=== PATIENT | female | born 1945 | race Two or more races ===

== ENCOUNTER 2017-03-24 09:57 | Day surgery (SDC) | payer MEDICARE, MEDICAID ==
[2017-03-23 16:56] LABS: BASOPHILS # (AUTO) 0.1 X10'3 (0-0.2); BASOPHILS % (AUTO) 0.9 % (0-1); EOSINOPHILS # (AUTO) 0.2 X10'3 (0-0.9); EOSINOPHILS % (AUTO) 1.8 % (0-6); HEMATOCRIT 30.1 % (35.0-45.0); HEMOGLOBIN 9.9 g/dl (12.0-16.0); LYMPHOCYTES # (AUTO) 1.7 X10'3 (1.1-4.8); LYMPHOCYTES % (AUTO) 19.8 % (21-51); MEAN CORPUSCULAR HEMOGLOBIN 26.5 PG (27.0-31.0); MEAN CORPUSCULAR HGB CONC 32.9 % (33.0-36.5); MEAN CORPUSCULAR VOLUME 80.6 FL (78-98); MEAN PLATELET VOLUME 8.7 FL (7.4-10.4); MONOCYTES # (AUTO) 0.4 X10'3 (0-0.9); MONOCYTES % (AUTO) 5.2 % (2-12); NEUTROPHILS # (AUTO) 6.2 X10'3 (1.8-7.7); NEUTROPHILS % (AUTO) 72.3 % (42-75); PLATELET COUNT 297 X10'3 (140-440); RED BLOOD COUNT 3.73 X10'6 (4.20-5.60); RED CELL DISTRIBUTION WIDTH 15.3 % (11.5-14.5); WHITE BLOOD COUNT 8.6 X10'3 (4.5-11.0)
[2017-03-23 17:07] LABS: ALBUMIN 3.5 G/DL (3.4-5.0); ANION GAP 9 (8-16); BLOOD UREA NITROGEN 45 MG/DL (7-18); CALCIUM 8.5 MG/DL (8.5-10.1); CHLORIDE 107 MMOL/L (99-107); GLUCOSE 154 MG/DL (70-104); SODIUM 139 MMOL/L (135-145); TOTAL CARBON DIOXIDE 23.1 MMOL/L (24-32); eGFR 15 ML/MIN
[2017-03-23 17:08] LABS: PARTIAL THROMBOPLASTIN TIME 24 SECONDS (22-32); PROTHROMBIN TIME 10.7 SECONDS (9.0-12.0)
[2017-03-24] VITALS (11 sets, daily range): BP systolic 121–156; BP diastolic 55–76
[~2017-03-24] VITALS: Ht 157.5 cm; Wt 70.0 kg
[~2017-03-24 09:57] MED LIST: CAR30T PO; ESCI20TA29 PO; FENO48TA4 PO; INSU100V36 SQ; LANTUS SQ; LEVO100T46 PO; LISI-222 PO; LORA0.5T PO; OMEP-84 PO; OXYB10TA16 PO; POLY1POW3 MC
[2017-03-24] MEDS ORDERED: diphenhydrAMINE 25mg capsule PO PRN (10:25)
[2017-03-24] MEDS ORDERED: normal saline 1000ml 1,000 ML IV SCH (10:25)
[2017-03-24] MEDS ORDERED: LORazepam 0.5 MG tablet PO PRN (10:25)
[2017-03-24] MEDS ORDERED: CITA20TA11 PO (11:39)
[2017-03-24] MEDS ORDERED: VALS80TA2 PO (11:48)
[2017-03-24] MEDS ORDERED: NITR0.4T51 SL (11:49)
[2017-03-24] MEDS ORDERED: FLUT16SP20 BOTHNARES (11:51)
[2017-03-24] MEDS ORDERED: iohexol 350MG/ML 100ml bottle IV ONE (12:06)
[2017-03-24] MEDS ORDERED: midazolam 2 mg/2 ml injection ONE (12:06)
[2017-03-24] MEDS ORDERED: heparin 1,000unit/ml 10ml vial 10 ML ONE (12:06)
[2017-03-24] MEDS ORDERED: fentaNYL/PF 50MCG/1 ML 2ML syringe ONE (12:06)
[2017-03-24] MEDS ORDERED: iohexol 350 MG/ML 50ML vial IV ONE (12:06)
[2017-03-24] MEDS ORDERED: nitroGLYCERIN-Tridil 50MG/D5W 250 ML IV ONE (12:06)
[2017-03-24] MEDS ORDERED: LIDOcaine 1%/PF (10mg/ml) 5ml vial ONE (12:06)
[2017-03-24] MEDS ORDERED: sod bicarbonate 150mEq in D5W 1,150 ML IV ONE ×2 (13:05→14:20)
[2017-03-24 13:16] LABS: ISTAT HGB ART 9.5 g/dl (12.0-16.0); ISTAT Hct ART 28 %PCV (35-48); ISTAT O2 SATURATION ARTERIAL 99 % (95-98); ISTAT SOURCE ART
[2017-03-24 13:16] LABS: ISTAT Hct MIX 30 %PCV (35-48); ISTAT O2 SATURATION MIX VENOUS 71 % (60-80); ISTAT SOURCE MIX
[2017-03-24] MEDS ORDERED: HYDROcodone/acetaminophen 10/325mg tab PO ONE (17:25)
[2017-03-24] MEDS ORDERED: acetylcysteine 200 MG/ml 4ml vial PO SCH (20:00)
== END 2017-03-24 19:20 | disposition home or self-care (01) ==
LOC: SSTAY O 09:57
PROVIDERS: ATTEND Internal Medicine Cardiovascular Disease
DX: I25.10 Atherosclerotic heart disease of native coronary artery without angina pectoris (principal); E78.4 Other hyperlipidemia; J45.998 Other asthma; M06.80 Other specified rheumatoid arthritis, unspecified site; M19.90 Unspecified osteoarthritis, unspecified site; I12.9 Hypertensive chronic kidney disease with stage 1 through stage 4 chronic kidney disease, or unspecified chronic kidney disease; N18.9 Chronic kidney disease, unspecified; E11.22 Type 2 diabetes mellitus with diabetic chronic kidney disease; E03.8 Other specified hypothyroidism
CPT/HCPCS: 36415; 80048; 82803; 82948; 85014; 85025; 85610; 85730; 93005; 93460; 99152; 99153; A6257; C1760; C1769; J1644; J2001; J2250; J3010; J3490; J7030; Q0163; Q9967; A4620

== ENCOUNTER 2023-12-29 23:12 | Inpatient (IN) | payer MEDICARE, MEDICAID ==
[~2023-12-29] VITALS: Ht 154.9 cm; Wt 67.1 kg
[~2023-12-29 23:12] MED LIST changes: +ASCO-336 PO; +CALC667T6 PO; -CAR30T PO; +CHOL20004 PO; +DILT30TA2 PO; -ESCI20TA29 PO; -FENO48TA4 PO; -LEVO100T46 PO; +LEVO75TA7 PO; -LISI-222 PO; -LORA0.5T PO; +LOSA50TA64 PO; +NITR0.4T51 SL; -OXYB10TA16 PO; -POLY1POW3 MC; +TRAM50TA2 PO
[2023-12-30] VITALS (26 sets, daily range): BP systolic 110–176; BP diastolic 54–96; PULSE 73–112; RESP 12–22; TEMP 97.4–98.5; O2SAT 95–100
[2023-12-30] MEDS ORDERED: SEVE800T8 PO (01:03)
[2023-12-30] MEDS ORDERED: MECL-231 PO (01:03)
[2023-12-30] MEDS ORDERED: METO5TAB98 PO (01:03)
[2023-12-30] MEDS ORDERED: ONDA-245 PO (01:03)
[2023-12-30] MEDS ORDERED: CLON0.1T2 PO (01:03)
[2023-12-30] MEDS ORDERED: ROSU10TA72 PO (01:03)
[2023-12-30] MEDS ORDERED: DILT240C94 PO (01:05)
[2023-12-30] MEDS ORDERED: APIX5TAB3 PO (01:08)
[2023-12-30] MEDS ORDERED: potassium Cl 20 mEq SR tablet PO PRN ×2 (02:10)
[2023-12-30] MEDS ORDERED: magnesium Cl slow-release 64mg tablet PO PRN (02:10)
[2023-12-30] MEDS ORDERED: potassium Cl 40MEQ/1/2NS 520ml 520 ML IV PRN (02:10)
[2023-12-30] MEDS ORDERED: ondansetron/PF 4mg/2ml inj IV PRN (02:10)
[2023-12-30] MEDS ORDERED: PERFLUTREN PROTEIN-A MICROSPHR (Optison) 0.22 MG/ML 3ML VIAL IV PRN (02:10)
[2023-12-30] MEDS ORDERED: magnesium sulf-water 4G/100mL 100 ML IV PRN (02:10)
[2023-12-30] MEDS ORDERED: magnesium hydroxide 30ml (MOM) UD suspension PO PRN (02:10)
[2023-12-30] MEDS ORDERED: magnesium sulf-water 2g/50mL 50 ML IV PRN (02:10)
[2023-12-30] MEDS ORDERED: mag hydrox/Alum hydrox/simeth 30ml oral suspension PO PRN (02:10)
[2023-12-30 02:38] LABS: PROTHROMBIN TIME 10.9 SECONDS (9.0-12.0)
[2023-12-30 02:40] LABS: BILIRUBIN,URINE NEGATIVE (Neg); CLARITY,URINE CLEAR (Clear); COLOR,URINE STRAW (Yellow); GLUCOSE, URINE 100 mg/dl (Neg); KETONES,URINE NEGATIVE (Neg); LEUKOCYTE ESTERASE ,URINE SMALL (Neg); NITRITES, URINE NEGATIVE (Neg); OCCULT BLOOD,URINE TRACE-INTACT (Neg); PH,URINE 8.5 (4.8-8.0); PROTEIN,URINE 100 mg/dl (Neg); UROBILINOGEN,URINE 0.2 E.U/dL (0.2-1.0)
[2023-12-30] MEDS ORDERED: glucagon, human recombinant 1mg kit SUBCUT PRN (02:45)
[2023-12-30] MEDS ORDERED: DEXTROSE 15 GM of carb/4 tabs (each vial/BOTTLE has 4 tablets) PO PRN ×2 (02:45)
[2023-12-30] MEDS ORDERED: ipratropium/albuterol 3ml nebule NEB PRN (02:45)
[2023-12-30] MEDS ORDERED: dextrose 50%-water 50ml dispensing syringe IV PRN ×2 (02:45)
[2023-12-30 02:48] LABS: ALANINE AMINOTRANSFERASE 27 U/L (12-78); ALBUMIN 3.1 G/DL (3.4-5.0); ALBUMIN/GLOBULIN RATIO 0.7 (1.1-1.5); ALKALINE PHOSPHATASE 199 IU/L (46-116); ANION GAP 9 (8-16); ASPARTATE AMINO TRANSFERASE 18 U/L (10-37); BILIRUBIN,TOTAL 0.5 MG/DL (0.1-1.0); BLOOD UREA NITROGEN 47 MG/DL (7-18); BUN/CREATININE RATIO 9.5 (10.0-20.0); CALCIUM 8.5 MG/DL (8.5-10.1); CHLORIDE 93 MMOL/L (99-107); CREATININE 4.95 MG/DL (0.40-0.90); GLUCOSE 122 MG/DL (70-104); POTASSIUM 4.3 MMOL/L (3.5-5.1); SODIUM 132 MMOL/L (135-145); TOTAL CARBON DIOXIDE 29.9 MMOL/L (24-32); TOTAL PROTEIN 7.4 G/DL (6.4-8.2); eCRCL 7 ML/MIN; eGFR 8 ML/MIN
[2023-12-30 02:49] LABS: UA COLLECTION TYPE CLN CATCH MIDSTREAM
[2023-12-30 02:49] LABS: BASOPHILS % (AUTO) 0.3 % (0-1); EOSINOPHILS # (AUTO) 0.1 X10'3 (0-0.9); HEMATOCRIT 30.8 % (35.0-45.0); HEMOGLOBIN 10.3 g/dl (12.0-16.0); LYMPHOCYTES # (AUTO) 1.2 X10'3 (1.1-4.8); MEAN CORPUSCULAR HEMOGLOBIN 30.4 PG (27.0-31.0); MEAN CORPUSCULAR HGB CONC 33.5 g/dL (33.0-36.5); MEAN CORPUSCULAR VOLUME 90.7 FL (78-98); MEAN PLATELET VOLUME 8.7 FL (7.4-10.4); MONOCYTES # (AUTO) 0.6 X10'3 (0-0.9); MONOCYTES % (AUTO) 6.7 % (2-12); NEUTROPHILS # (AUTO) 7.2 X10'3 (1.8-7.7); PLATELET COUNT 200 X10'3 (140-440); RED CELL DISTRIBUTION WIDTH 16.2 % (11.5-14.5); WHITE BLOOD COUNT 9.2 X10'3 (4.5-11.0)
[2023-12-30 02:50] LABS: SQUAMOUS EPITHELIAL CELL,UR FEW /LPF (FEW); TRANSITIONAL EPI CELLS,URINE FEW /HPF
[2023-12-30] MEDS ORDERED: nitroGLYCERIN 0.4mg SUBLingual tab SL PRN ×2 (02:50→11:45)
[2023-12-30 02:51] LABS: BACTERIA,URINE FEW /HPF (Neg)
[2023-12-30 03:07] LABS: HEMOGLOBIN A1C 5.5 % (4.5-6.2)
[2023-12-30 03:08] LABS: THYROID STIMULATING HORMONE 1.85 ulU/ml (0.34-4.50)
[2023-12-30] MEDS ORDERED: INSU100V9 SQ (06:11)
[2023-12-30] MEDS: EPOETIN ALFA-EPBX 20,000 UNIT/ML 1 ML MDV IV ONE ×2 (06:45→19:34)
[2023-12-30] MEDS ORDERED: albumin (human) 25% 100ml IV 100 ML IV PRN (06:45)
[2023-12-30] MEDS: heparin 1,000 units/ml 10ml inj HE ONE ×4 (06:50→19:36)
[2023-12-30] MEDS: INSULIN LISPRO 100 UNIT/ML INSULN.PEN MULTI-DOSE SQ SCH (07:00)
[2023-12-30] MEDS: pantoprazole 40mg Tablet.DR PO SCH (07:38)
[2023-12-30] MEDS: K and/or MAG REPLACEMENT MC SCH (07:39)
[2023-12-30] MEDS: docusate sod 100mg capsule PO SCH (08:00)
[2023-12-30] MEDS ORDERED: heparin, porcine 5000 units/ml vial SQ SCH (08:00)
[2023-12-30 08:06] LABS: MAGNESIUM 2.6 MG/DL (1.5-2.4); POTASSIUM 4.6 MMOL/L (3.5-5.1)
[2023-12-30] MEDS: CefTRIAXone/D5W-Rocephin 1gm 50 ML IV SCH (08:51)
[2023-12-30] MEDS: levoTHYROXINE 75mcg tablet PO SCH (08:51)
[2023-12-30] MEDS: sevelamer carbonate 800mg tablet PO SCH (08:52)
[2023-12-30] MEDS: apixaban 5mg tablet PO SCH (08:52)
[2023-12-30] MEDS: meclizine 12.5mg tablet PO SCH (08:52)
[2023-12-30] MEDS: diltiazem CD 120mg capsule (once-daily) PO SCH (08:52)
[2023-12-30] MEDS: ondansetron 4mg rapidly disintigrating tab PO SCH (08:52)
[2023-12-30] MEDS: insulin glargine (Lantus) pen - multi-dose SQ SCH (09:07)
[2023-12-30 10:01] LABS: BASOPHILS % (AUTO) 0.4 % (0-1); EOSINOPHILS # (AUTO) 0.1 X10'3 (0-0.9); EOSINOPHILS % (AUTO) 1.2 % (0-6); HEMATOCRIT 29.8 % (35.0-45.0); HEMOGLOBIN 9.8 g/dl (12.0-16.0); LYMPHOCYTES # (AUTO) 1.1 X10'3 (1.1-4.8); LYMPHOCYTES % (AUTO) 16.3 % (21-51); MEAN CORPUSCULAR HEMOGLOBIN 30.1 PG (27.0-31.0); MEAN CORPUSCULAR VOLUME 91.1 FL (78-98); MEAN PLATELET VOLUME 8.5 FL (7.4-10.4); MONOCYTES # (AUTO) 0.6 X10'3 (0-0.9); MONOCYTES % (AUTO) 8.4 % (2-12); NEUTROPHILS % (AUTO) 73.7 % (42-75); PLATELET COUNT 181 X10'3 (140-440); RED BLOOD COUNT 3.27 X10'6 (4.20-5.60); RED CELL DISTRIBUTION WIDTH 15.8 % (11.5-14.5); WHITE BLOOD COUNT 6.8 X10'3 (4.5-11.0)
[2023-12-30 10:19] LABS: ALANINE AMINOTRANSFERASE 24 U/L (12-78); ALBUMIN 3.2 G/DL (3.4-5.0); ALBUMIN/GLOBULIN RATIO 0.8 (1.1-1.5); ALKALINE PHOSPHATASE 191 IU/L (46-116); ASPARTATE AMINO TRANSFERASE 24 U/L (10-37); BILIRUBIN,TOTAL 0.5 MG/DL (0.1-1.0); BLOOD UREA NITROGEN 46 MG/DL (7-18); BUN/CREATININE RATIO 9.4 (10.0-20.0); CALCIUM 8.3 MG/DL (8.5-10.1); CREATININE 4.91 MG/DL (0.40-0.90); GLUCOSE 117 MG/DL (70-104); TOTAL CARBON DIOXIDE 28.1 MMOL/L (24-32); TOTAL PROTEIN 7.3 G/DL (6.4-8.2); eCRCL 7 ML/MIN; eGFR 9 ML/MIN
[2023-12-30 10:25] LABS: POTASSIUM 4.4 MMOL/L (3.5-5.1); SODIUM 130 MMOL/L (135-145)
[2023-12-30 10:26] LABS: ANION GAP 11 (8-16); CHLORIDE 91 MMOL/L (99-107)
[2023-12-30] MEDS ORDERED: metoprolol tartrate 1mg/ml inj IV PRN (11:45)
[2023-12-30] MEDS: acetaminophen 325mg tablet PO PRN (13:43)
[2023-12-30] MEDS: regadenoson 0.4mg/5ml syringe IV PRN (15:37)
[2023-12-30] MEDS: aminophylline 250mg/10ml inj. IV PRN (16:06)
[2023-12-30] MEDS ORDERED: metoclopramide 10mg tablet PO PRN (20:30)
[2023-12-30] MEDS: cloNIDine 0.1 mg tablet PO SCH (22:32)
[2023-12-30] MEDS: ROSUVASTATIN CALCIUM 5 MG TABLET PO SCH (22:51)
[2023-12-31 02:00] VITALS: BP 105/47; PULSE 85; RESP 14; TEMP 98.3; O2SAT 96
[2023-12-31 06:00] VITALS: BP 101/47; PULSE 67; RESP 13; TEMP 98.7; O2SAT 99
[2023-12-31 08:00] VITALS: RESP 13; O2SAT 99
[2023-12-31 08:16] LABS: BASOPHILS # (AUTO) 0.1 X10'3 (0-0.2); BASOPHILS % (AUTO) 1.1 % (0-1); EOSINOPHILS # (AUTO) 0.1 X10'3 (0-0.9); EOSINOPHILS % (AUTO) 1.3 % (0-6); HEMATOCRIT 30.5 % (35.0-45.0); HEMOGLOBIN 10.1 g/dl (12.0-16.0); LYMPHOCYTES # (AUTO) 1.3 X10'3 (1.1-4.8); LYMPHOCYTES % (AUTO) 21.6 % (21-51); MEAN CORPUSCULAR HEMOGLOBIN 30.7 PG (27.0-31.0); MEAN CORPUSCULAR HGB CONC 33.2 g/dL (33.0-36.5); MEAN CORPUSCULAR VOLUME 92.5 FL (78-98); MEAN PLATELET VOLUME 7.8 FL (7.4-10.4); MONOCYTES # (AUTO) 0.7 X10'3 (0-0.9); MONOCYTES % (AUTO) 10.9 % (2-12); NEUTROPHILS # (AUTO) 4.1 X10'3 (1.8-7.7); NEUTROPHILS % (AUTO) 65.1 % (42-75); PLATELET COUNT 197 X10'3 (140-440); RED CELL DISTRIBUTION WIDTH 16.5 % (11.5-14.5); WHITE BLOOD COUNT 6.2 X10'3 (4.5-11.0)
[2023-12-31 08:21] LABS: ANION GAP 8 (8-16); BLOOD UREA NITROGEN 30 MG/DL (7-18); BUN/CREATININE RATIO 7.6 (10.0-20.0); CALCIUM 8.5 MG/DL (8.5-10.1); CHLORIDE 95 MMOL/L (99-107); CREATININE 3.93 MG/DL (0.40-0.90); GLUCOSE 98 MG/DL (70-104); MAGNESIUM 2.4 MG/DL (1.5-2.4); POTASSIUM 5.1 MMOL/L (3.5-5.1); SODIUM 130 MMOL/L (135-145); TOTAL CARBON DIOXIDE 27.4 MMOL/L (24-32); eCRCL 9 ML/MIN; eGFR 11 ML/MIN
[2023-12-31] MEDS ORDERED: LEVO250T74 PO (10:42)
[2023-12-31 11:00] VITALS: BP 118/48; PULSE 68; RESP 13; TEMP 97.1; O2SAT 99
[2024-01-02 05:20] LABS: HBSAG SCREEN Negative (Negative)
== END 2023-12-31 15:00 | disposition home or self-care (01) | DRG 205 ==
LOC: ER 23:12 → UNDOADMIN 12-30 00:43 → ED HOLD 12-30 00:43 → SUR 3N 12-30 11:30 → PCU 3S 12-30 16:24
PROVIDERS: ADMIT Internal Medicine Critical Care Medicine; ATTEND Family Medicine
PROC: 5A1D70Z Performance of Urinary Filtration, Intermittent, Less than 6 Hours Per Day (ICD-10-PCS; principal; 2023-12-30)
PROC: 4A02XM4 Measurement of Cardiac Total Activity, External Approach (ICD-10-PCS; 2023-12-30)
PROC: 3E033HZ Introduction of Radioactive Substance into Peripheral Vein, Percutaneous Approach (ICD-10-PCS; 2023-12-30)
DX: M94.0 Chondrocostal junction syndrome [Tietze] (principal); N18.6 End stage renal disease; J98.11 Atelectasis; G95.89 Other specified diseases of spinal cord; E11.22 Type 2 diabetes mellitus with diabetic chronic kidney disease; D63.1 Anemia in chronic kidney disease; J45.909 Unspecified asthma, uncomplicated; E03.9 Hypothyroidism, unspecified; F32.A Depression, unspecified; Z88.8 Allergy status to other drugs, medicaments and biological substances; Z99.2 Dependence on renal dialysis; Z88.6 Allergy status to analgesic agent; Z88.1 Allergy status to other antibiotic agents; Z88.5 Allergy status to narcotic agent; Z91.013 Allergy to seafood; Z79.01 Long term (current) use of anticoagulants; Z79.899 Other long term (current) drug therapy
CPT/HCPCS: 36415; 71045; 78452; 80048; 80053; 81001; 82948; 83036; 83605; 83735; 84132; 84443; 84484; 85025; 85610; 87040; 87077; 87088; 87186; 87340; 93017; 93306; 94760; 99285; A9500; E1594; G0257; G0378; J0280; J0696; J1644; J2785; J7030; J8597; Q4081